=== PATIENT | female | born 1935 | race Caucasian/White ===

== ENCOUNTER 2017-02-28 14:06 | Observation (INO) | payer OTHER, MEDICARE ==
[2017-02-28] MEDS ORDERED: ACETAMINOPHEN 325 MG TABLET (FP) PO ONE (15:13)
--- NOTE | 2017-02-28 15:16 | PDOC ---
History of Present Illness - General History Source: Patient, Friend, Old Records Exam Limitations: No Limitations - History of Present Illness Initial Comments: 02/28/17 16:14 The patient is a 81 year old female presenting with her friend, with a significant past medical history of parkinsons, depression and HTN s/p pacemaker , who presents to the emergency department after tripping and falling earlier today. She states that the fall was a mechanical fall, for which she landed on the right side of her body. She states that she has diffused pain throughout her body due to the fall. She denies any head trauma or loss of consciousness. The patient currently resides at [address] [place] [address]. The patient states that she ambulates with a walker. The patient denies chest pain, shortness of breath, headache and dizziness. Denies fever, chills, nausea, vomit, diarrhea and constipation. Denies dysuria, frequency, urgency and hematuria. Allergies: None Past surgical history: Pacemaker Social history: Alcohol use. No tobacco or drug use reported PMD - Dr. Tianna Tran <Pérez Norman - Last Filed: 02/28/17 17:41> - General History Source: Patient, Family Exam Limitations: No Limitations <Forest Lewis - Last Filed: 02/28/17 18:48> - General Chief Complaint: Injury Stated Complaint: FALL Time Seen by Provider: 02/28/17 14:51 Past History <Pérez Norman - Last Filed: 02/28/17 17:41> - Past Medical History HTN: Yes Psychiatric Problems: Yes (DEPRESSION) Other medical history: PARKINSON - Psycho/Social/Smoking Cessation Hx Anxiety: No Suicidal Ideation: No Smoking History: Never smoked Have you smoked in the past 12 months: No Information on smoking cessation initiated: No Hx Alcohol Use: No Drug/Substance Use Hx: No Substance Use Type: None <Forest Lewis - Last Filed: 02/28/17 18:48> - Past Medical History Allergies/Adverse Reactions: Allergies Allergy/AdvReac Type Severity Reaction Status Date / Time No Known Allergies Allergy Verified 02/28/17 14:35 Home Medications: Ambulatory Orders Naproxen [Naprosyn -] 250 mg PO BID #14 tablet 07/14/14 Oxycodone HCl/Acetaminophen [Percocet 5-325 mg Tablet -] 1 tab PO Q6H #12 tablet 07/14/14 Acetaminophen [Tylenol] 650 mg PO Q4H PRN #20 tablet 02/28/17 Ibuprofen 400 mg PO Q6H PRN #20 tablet 02/28/17 Oxycodone HCl 5 mg PO Q8H PRN #10 tablet MDD 3 02/28/17 Review of Systems - Review of Systems Able to Perform ROS?: Yes Comments:: 02/28/17 16:14 GENERAL/CONSTITUTIONAL: No fever or chills. No weakness. HEAD, EYES, EARS, NOSE AND THROAT: No change in vision. No ear pain or discharge. No sore throat. CARDIOVASCULAR: No chest pain or shortness of breath RESPIRATORY: No cough, wheezing, or hemoptysis. GASTROINTESTINAL: No nausea, vomiting, diarrhea or constipation. GENITOURINARY: No dysuria, frequency, or change in urination. MUSCULOSKELETAL: (+) Right sided body pain. No joint or muscle swelling or pain. No neck or back pain. SKIN: No rash NEUROLOGIC: No headache, vertigo, loss of consciousness, or change in strength/ sensation. ENDOCRINE: No increased thirst. No abnormal weight change HEMATOLOGIC/LYMPHATIC: No anemia, easy bleeding, or history of blood clots. ALLERGIC/IMMUNOLOGIC: No hives or skin allergy. <Pérez Norman - Last Filed: 02/28/17 17:41> *Physical Exam - Vital Signs Last Vital Signs Temp Pulse Resp BP Pulse Ox 97.4 F L 89 20 119/66 90 L 02/28/17 14:35 02/28/17 14:35 02/28/17 14:35 02/28/17 14:35 02/28/17 14:35 - Physical Exam Comments: 02/28/17 16:14 GENERAL: Awake, alert, and fully oriented, in no acute distress HEAD: No signs of trauma, normocephalic, atraumatic EYES: PERRLA, EOMI, sclera anicteric, conjunctiva clear ENT: Auricles normal inspection, hearing grossly normal, nares patent, oropharynx clear without exudates. Moist mucosa NECK: Normal ROM, supple, no lymphadenopathy, JVD, or masses LUNGS: No distress, speaks full sentences, clear to auscultation bilaterally HEART: (+) Right sided pacemaker. Regular rate and rhythm, normal S1 and S2, no murmurs, rubs or gallops, peripheral pulses normal and equal bilaterally. ABDOMEN: Soft, nontender, normoactive bowel sounds. No guarding, no rebound. No masses EXTREMITIES: Normal inspection, Normal range of motion, no edema. No clubbing or cyanosis. NEUROLOGICAL: Cranial nerves II through XII grossly intact. Normal speech, no focal sensorimotor deficits SKIN: Warm, Dry, normal turgor, no rashes or lesions noted. <Pérez Norman - Last Filed: 02/28/17 17:41> - Vital Signs Last Vital Signs Temp Pulse Resp BP Pulse Ox 97.4 F L 89 20 119/66 90 L 02/28/17 14:35 02/28/17 14:35 02/28/17 14:35 02/28/17 14:35 02/28/17 14:35 <Forest Lewis - Last Filed: 02/28/17 18:48> ED Treatment Course - Medications Given in the ED: ED Medications Discontinued Medications Generic Name Dose Route Start Last Admin Trade Name Minaq PRN Reason Stop Dose Admin Acetaminophen 650 mg 02/28/17 15:13 02/28/17 15:54 Tylenol - PO 02/28/17 15:14 650 mg ONCE ONE Administration <Pérez Norman - Last Filed: 02/28/17 17:41> - RADIOLOGY Radiology Studies Ordered: Category Date Time Status CHEST - PA [RAD] Stat Radiology 02/28/17 15:12 Ordered HIP & PELVIS-RIGHT [RAD] Stat Radiology 02/28/17 15:12 Ordered RIBS RIGHT SIDE [RAD] Stat Radiology 02/28/17 15:12 Ordered <Forest Lewis - Last Filed: 02/28/17 18:48> Medical Decision Making - Medical Decision Making 02/28/17 15:15 A portion of this note was documented by scribe services under my direction. I have reviewed the details of the note, within reason, and agree with the documentation with the following case summary and management plan written by me. Patient treated in the ED. Nursing notes are reviewed and incorporated into the medical decision-making. Vital signs reviewed. Peripheral IV access obtained by the nurse, laboratory studies are drawn and sent, reviewed and interpreted by myself. Vital Signs Temp Pulse Resp BP Pulse Ox 97.4 F L 89 20 119/66 90 L 02/28/17 14:35 02/28/17 14:35 02/28/17 14:35 02/28/17 14:35 02/28/17 14:35 81-year-old female with past medical history of Parkinson's disease presents with mechanical fall. Patient has slipped and fell and landed on the right several body. She actually denies hitting her head or losing consciousness. She complained about some right lateral ribs pain in addition to right hip pain. However, patient has full range of motion of right hip and no pain on internal or external rotation. We'll obtain x-rays and reassess. 02/28/17 18:22 X-rays reviewed. Old right sixth and seventh rib fractures. Pelvis x-ray done shows no gross evidence of fracture or dislocation. The patient would like to go home. However, pt was noted to have an O2 saturation 90%. Repeat O2 saturation is 87% . I suspect that this is secondary to splinting. Patient will need to be admitted for observation for rib contusion and hypoxia. Case discussed with DR. Gonzales who accepts the patient to med/surg observation. Case discussed in detail with admitting physician including history, physical exam and ancillary studies. Admitting physician has assumed care for the patient, will follow all pending diagnostics and will complete the evaluation and treatment. <Forest Lewis - Last Filed: 02/28/17 18:48> *DC/Admit/Observation/Transfer - Attestations Scribe Attestion: 02/28/17 16:15 Documentation prepared by Pérez Noramn, acting as manager of medical for Forest Lewis MD <Pérez Norman - Last Filed: 02/28/17 17:41> - Discharge Dispostion Admit: Yes <Forest Lewis - Last Filed: 02/28/17 18:48> Diagnosis at time of Disposition: Hypoxia Fall Qualifiers: Encounter type: initial encounter Qualified Code(s): W19.XXXA - Unspecified fall, initial encounter - Discharge Dispostion Condition at time of disposition: Stable - Prescriptions Prescriptions: Ibuprofen 400 mg PO Q6H PRN #20 tablet PRN Reason: Pain Oxycodone HCl 5 mg PO Q8H PRN #10 tablet MDD 3 PRN Reason: Pain Level 6-10 Acetaminophen [Tylenol] 650 mg PO Q4H PRN #20 tablet PRN Reason: Pain - Referrals Referrals: Tianna Tran [Primary Care Provider] - - Patient Instructions Printed Discharge Instructions: How to Prevent Falls Additional Instructions: The x-ray demonstrates old fractures in the right side on ribs 6 and 7. But no other acute fractures. There is no fracture in the head. Please take 650 mg every 4 hours needed for pain. For additional relief, taking 40 mg of ibuprofen every 6 hours as needed. For severe pain control, please take 5 g of oxycodone every 8 hours as needed. However, please be very careful as his medication may make you drowsy and you may fall on this medication. Another side effect is constipation from this medication. Please follow-up with your regular doctor. If you're having uncontrollable pain, or has symptoms of a pneumonia, please return to the ER for further evaluation.
[2017-02-28] MEDS ORDERED: ACETAMINOPHEN 325 MG TABLET (FP) ONE (15:47)
[2017-02-28] MEDS ORDERED: morphine CARPU-JECT 2 MG/1 ML DISP.SYRIN IVPUSH ONE (18:46)
[2017-02-28] MEDS ORDERED: morphine CARPU-JECT 2 MG/1 ML DISP.SYRIN ONE (20:00)
--- NOTE | 2017-02-28 21:23 | HP ---
Admitting History and Physical - Primary Care Physician PCP: Colton Gonzales - Admission Chief Complaint: fall History of Present Illness: 81 year old female presenting with her friend, with a significant past medical history of parkinsons, depression and HTN s/p pacemaker, who presents to the emergency department after tripping and falling earlier today. She states that the fall was a mechanical fall, for which she landed on the right side of her body. She states that she has diffused pain throughout her body due to the fall. She denies any head trauma or loss of consciousness. The patient currently resides at [address] [place] [address]. The patient states that she ambulates with a walker. 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 Cardiovascular: Yes: HTN - Smoking History Smoking history: Never smoked Have you smoked in the past 12 months: No - Alcohol/Substance Use Hx Alcohol Use: No Home Medications - Allergies Allergies/Adverse Reactions: Allergies Allergy/AdvReac Type Severity Reaction Status Date / Time escitalopram oxalate Allergy Mild Verified 02/28/17 23:22 [From Lexapro] metoprolol succinate Allergy Verified 02/28/17 23:23 [From Toprol XL] - Home Medications Home Medications: Ambulatory Orders NK [No Known Home Medication] 02/28/17 Physical Examination Vital Signs: Vital Signs Temperature 98.9 F 02/28/17 18:41 Pulse Rate 94 H 02/28/17 18:41 Respiratory Rate 25 H 02/28/17 18:41 Blood Pressure 127/74 02/28/17 18:41 O2 Sat by Pulse Oximetry (%) 96 02/28/17 19:08 Constitutional: Yes: No Distress HENT: Yes: Atraumatic Neck: Yes: Supple Cardiovascular: Yes: Regular Rate and Rhythm Respiratory: Yes: CTA Bilaterally Gastrointestinal: Yes: Normal Bowel Sounds Extremities: Yes: WNL Neurological: Yes: Alert, Oriented Problem List - Problems (1) Fall Assessment/Plan: no acute fracture prn pain meds Code(s): W19.XXXA - UNSPECIFIED FALL, INITIAL ENCOUNTER Qualifiers: Encounter type: initial encounter Qualified Code(s): W19.XXXA - Unspecified fall, initial encounter (2) Hypoxia Assessment/Plan: need to take deep breath now on prn oxygen to mantain o2 sats above 90 % Code(s): R09.02 - HYPOXEMIA (3) Contusion of back Code(s): S20.229A - CONTUSION OF UNSPECIFIED BACK WALL OF THORAX, INIT ENCNTR Assessment/Plan Laboratory Results - last 24 hr 02/28/17 02/28/17 21:30 21:30 WBC 11.7 H RBC 3.65 Hgb 11.6 Hct 34.8 MCV 95.4 MCHC 33.4 RDW 14.0 Plt Count 164 MPV 9.0 Neutrophils % 92.1 H Lymphocytes % 3.7 L Monocytes % 4.0 Eosinophils % 0.0 Basophils % 0.2 Sodium 143 Potassium 3.8 Chloride 105 Carbon Dioxide 27 Anion Gap 11 BUN 22 H Creatinine 0.7 Creat Clearance w eGFR > 60 Random Glucose 143 H Calcium 9.2 Total Bilirubin 0.8 AST 20 ALT 23 Alkaline Phosphatase 78 Total Protein 6.7 Albumin 3.6 Active Medications Generic Name Dose Route Start Last Admin Trade Name Freq PRN Reason Stop Dose Admin Acetaminophen 650 mg 02/28/17 21:24 03/01/17 12:19 Tylenol - PO 650 mg Q6H PRN Administration FEVER OR PAIN social work consult to help getting 24 hr aide d/w son at bed side
[2017-02-28 22:01] LABS: BASOPHIL 0.2 % (0-2.0); MCH 31.9 pg (25.7-33.7); MCHC 33.4 g/dl (32.0-36.0); MEAN CELL VOLUME 95.4 fl (80-96); NEUTROPHILS 92.1 % (42.8-82.8); PLATELET COUNT 164 K/MM3 (134-434); WHITE BLOOD COUNT 11.7 K/mm3 (4.0-10.0)
[2017-02-28] MEDS: ACETAMINOPHEN 325 MG TABLET (FP) PO PRN (22:29)
[2017-02-28 22:58] VITALS: BMI 22.9
[2017-02-28 23:27] LABS: ALBUMIN 3.6 g/dl (3.4-5.0); ALK PHOS 78 U/L (45-117); ANION GAP 11 (8-16); BILIRUBIN,TOTAL 0.8 mg/dL (0.2-1.0); CALCIUM 9.2 mg/dL (8.5-10.1); CO2 27 mmol/L (21-32); COCKROFT - GAULT 64.1325; CREATININE 0.7 mg/dL (0.55-1.02); GLUCOSE,RANDOM 143 mg/dL (74-106); SGOT/AST 20 U/L (15-37); SGPT/ALT 23 U/L (12-78); TOT PROT 6.7 g/dl (6.4-8.2)
[2017-03-01] MEDS: ACETAMINOPHEN 325 MG TABLET (FP) PO PRN ×4 (05:53→23:47)
--- NOTE | 2017-03-01 11:22 | EKG ---
Test Reason : Blood Pressure : / mmHG Vent. Rate : 087 BPM Atrial Rate : 043 BPM P-R Int : 000 ms QRS Dur : 122 ms QT Int : 430 ms P-R-T Axes : 000 -01 -07 degrees QTc Int : 517 ms BASELINE ARTIFACT PRECLUDES ACCURATE ASSESSMENT PROBABLE SINUS RHYTHM NO PREVIOUS ECGS AVAILABLE Confirmed by AMA ROLLE MD ([id number]) on 03/01/2017 11:22:18 AM Referred By: Confirmed By:AMA ROLLE MD
--- NOTE | 2017-03-01 17:03 | PN ---
Progress Note, Physician - Current Medication List Current Medications: Active Medications Acetaminophen (Tylenol -) 650 mg PO Q6H PRN PRN Reason: FEVER OR PAIN Last Admin: 03/01/17 12:19 Dose: 650 mg - Objective Vital Signs: Vital Signs Temperature 98.3 F 03/01/17 14:54 Pulse Rate 67 03/01/17 14:54 Respiratory Rate 20 03/01/17 05:59 Blood Pressure 106/56 03/01/17 14:54 O2 Sat by Pulse Oximetry (%) 92 L 03/01/17 05:23 Constitutional: Yes: No Distress HENT: Yes: Atraumatic Neck: Yes: Supple Cardiovascular: Yes: Regular Rate and Rhythm Respiratory: Yes: CTA Bilaterally Gastrointestinal: Yes: Normal Bowel Sounds Extremities: Yes: WNL Neurological: Yes: Alert Labs: CBC, BMP 02/28/17 21:30 02/28/17 21:30 Problem List - Problems (1) Fall Code(s): W19.XXXA - UNSPECIFIED FALL, INITIAL ENCOUNTER Qualifiers: Encounter type: initial encounter Qualified Code(s): W19.XXXA - Unspecified fall, initial encounter (2) Hypoxia Code(s): R09.02 - HYPOXEMIA (3) Compression fracture of thoracic vertebra Code(s): S22.000A - WEDGE COMPRESSION FRACTURE OF UNSP THORACIC VERTEBRA, INIT (4) Contusion of back Code(s): S20.229A - CONTUSION OF UNSPECIFIED BACK WALL OF THORAX, INIT ENCNTR Assessment/Plan dc planning ..need aid 24 hr
[2017-03-02] MEDS: ACETAMINOPHEN 325 MG TABLET (FP) PO PRN ×3 (11:09→23:40)
--- NOTE | 2017-03-02 17:06 | PN ---
Progress Note, Physician - Current Medication List Current Medications: Active Medications Acetaminophen (Tylenol -) 650 mg PO Q6H PRN PRN Reason: FEVER OR PAIN Last Admin: 03/02/17 11:09 Dose: 650 mg - Objective Vital Signs: Vital Signs Temperature 98.2 F 03/02/17 14:16 Pulse Rate 71 03/02/17 14:16 Respiratory Rate 18 03/02/17 14:16 Blood Pressure 142/68 03/02/17 14:16 O2 Sat by Pulse Oximetry (%) 98 03/02/17 05:00 Constitutional: Yes: No Distress HENT: Yes: Atraumatic Neck: Yes: Supple Cardiovascular: Yes: Regular Rate and Rhythm Respiratory: Yes: CTA Bilaterally Gastrointestinal: Yes: Normal Bowel Sounds Extremities: Yes: WNL Neurological: Yes: Alert Labs: CBC, BMP 02/28/17 21:30 02/28/17 21:30 Problem List - Problems (1) Fall Assessment/Plan: no acute fracture prn pain meds Code(s): W19.XXXA - UNSPECIFIED FALL, INITIAL ENCOUNTER Qualifiers: Encounter type: initial encounter Qualified Code(s): W19.XXXA - Unspecified fall, initial encounter (2) Hypoxia Assessment/Plan: need to take deep breath resolved Code(s): R09.02 - HYPOXEMIA (3) Contusion of back Code(s): S20.229A - CONTUSION OF UNSPECIFIED BACK WALL OF THORAX, INIT ENCNTR Assessment/Plan dc in am need to check if she needs home oxygen
[2017-03-03] MEDS ORDERED: PT OWN MED DRAWER 7, Y5N ONE (09:28)
[2017-03-03] MEDS: ACETAMINOPHEN 325 MG TABLET (FP) PO PRN (09:52)
[2017-03-03 11:36] VITALS: BP 110/59
--- NOTE | 2017-03-03 14:22 | DS ---
Physical Examination Vital Signs: Vital Signs Temperature 98.1 F 03/03/17 09:00 Pulse Rate 78 03/03/17 12:10 Respiratory Rate 20 03/03/17 09:00 Blood Pressure 110/59 03/03/17 09:00 O2 Sat by Pulse Oximetry (%) 96 03/03/17 12:10 HENT: Yes: Normocephalic Cardiovascular: Yes: Regular Rate and Rhythm Respiratory: Yes: CTA Bilaterally Gastrointestinal: Yes: Normal Bowel Sounds Extremities: Yes: WNL Neurological: Yes: Alert Labs: CBC, BMP 02/28/17 21:30 02/28/17 21:30 Discharge Summary Reason For Visit: FALL Current Active Problems Fall (Acute) Hypoxia (Acute) Condition: Improved - Instructions Diet, Activity, Other Instructions: Please follow up with your Primary Care Physician. Referrals: Tianna Tran [Primary Care Provider] - - Home Medications Comprehensive Discharge Medication List: Ambulatory Order NOT ON ANY MEDICATION DC HOME NO NEED FOR HOME OXYGEN, SATURATIONS ARE GOOD
[2017-03-03 14:26] VITALS: PULSE 83; TEMP 98.4
== END 2017-03-03 18:30 ==
LOC: JER 14:06 → UNDOADMOB 18:48 → INTOOBSV 18:48 → JERBED 18:48 → J6S 21:52
PROVIDERS: ADMIT Internal Medicine; ATTEND Internal Medicine
PROC: 3E033NZ Introduction of Analgesics, Hypnotics, Sedatives into Peripheral Vein, Percutaneous Approach (ICD-10-PCS; principal; 2017-02-28)
DX: R09.02 Hypoxemia (principal); S20.229A Contusion of unspecified back wall of thorax, initial encounter; G20 Parkinson's disease; F32.9 Major depressive disorder, single episode, unspecified; I10 Essential (primary) hypertension; Z95.0 Presence of cardiac pacemaker; W01.0XXA Fall on same level from slipping, tripping and stumbling without subsequent striking against object, initial encounter; Y93.01 Activity, walking, marching and hiking; Y92.099 Unspecified place in other non-institutional residence as the place of occurrence of the external cause
CPT/HCPCS: 36415; 71010-TC; 71101-TC-RT; 73523-TC; 80053; 85025; 93005; 93010; 94761; 97116-GP; 97162-PG; 99282-25; G0378